=== PATIENT | male | born 1940 ===

== ENCOUNTER → 2019-02-25 | Outpatient (CLI) | payer MEDICARE | END | disposition home or self-care (01) | LOC: SUSANVILLE 08:00 | PROVIDERS: ATTEND Internal Medicine Cardiovascular Disease | DX: I08.8 Other rheumatic multiple valve diseases (principal); I11.9 Hypertensive heart disease without heart failure; I71.4 Abdominal aortic aneurysm, without rupture; E78.5 Hyperlipidemia, unspecified | CPT/HCPCS: 93306 ==